=== PATIENT | female | born 1955 | race Caucasian/White ===

== ENCOUNTER → 2016-10-16 | Outpatient (CLI) | payer OTHER ==
[~2016-10-16] MED LIST: COLACE 100100 MG/CAP PO; COREG 25MG25 MG/TAB PO; LIDODERM PATCH TP; TYLENOL 325MG325 MG PO; ZESTRIL 10MG10 MG PO
== END ==
LOC: COL.RAD 09:58
DX: M54.5 Low back pain (principal)

== ENCOUNTER → 2017-12-22 | Outpatient (CLI) | payer OTHER | LOC: MC.RAD 11-26 11:40 | DX: Z12.31 Encounter for screening mammogram for malignant neoplasm of breast (principal) ==

== ENCOUNTER → 2020-10-19 | Outpatient (CLI) | payer OTHER | LOC: MC.RAD 09:45 | DX: Z12.31 Encounter for screening mammogram for malignant neoplasm of breast (principal) ==